=== PATIENT | male | born 1970 | race Caucasian/White ===

== ENCOUNTER 2016-11-12 14:17 | Emergency (ER) | payer MEDICAID ==
[~2016-11-12] VITALS: Ht 162.6 cm; Wt 67.0 kg
[2016-11-12 15:24] VITALS: Ht 162.6 cm; Wt 67.0 kg
[2016-11-12] MEDS ORDERED: HYDROCODONE/APAP (5/325) TAB PO ONE (17:00)
[2016-11-12 17:01] LABS: ADD SCAN DIFF NO
[2016-11-12 17:03] LABS: ABNORMAL IP MESSAGE 1; HEMATOCRIT 41.6 % (42.0-52.0); MEAN CORPUSCULAR HEMOGLOBIN 27.2 pg (29.0-33.0); MEAN CORPUSCULAR HGB CONC 33.7 g/dl (32.0-37.0); MEAN CORPUSCULAR VOLUME 80.8 fl (82.0-101.0); MEAN PLATELET VOLUME 8.9 fl (7.4-10.4); PLATELET COUNT 297 10^3/UL (140-415); RED BLOOD COUNT 5.15 10^6/ul (4.70-6.10); RED CELL DISTRIBUTION WIDTH 13.2 % (11.5-14.5)
[2016-11-12 17:17] LABS: ALBUMIN 4.7 g/dl (3.3-4.9)
[2016-11-12 17:19] LABS: CREATININE 0.74 mg/dl (0.61-1.24)
[2016-11-12 17:20] LABS: ALBUMIN/GLOBULIN RATIO 1.42; CALCIUM 9.2 mg/dl (8.4-10.2)
[2016-11-12 17:51] LABS: BASOPHIL # 0.4 10^3/ul (0.0-0.1); EOSINOPHILS # 1.3 10^3/ul (0.0-0.5); LYMPHOCYTES # 3.9 10^3/ul (0.8-2.9); MONOCYTE # 0.7 10^3/ul (0.3-0.9); NEUTROPHIL # 4.7 10^3/ul (1.6-7.5)
[2016-11-12 17:55] LABS: PLATELET ESTIMATE PLT APPEAR ADEQUATE
[2016-11-12 19:48] LABS: URINE BLOOD (Dip) POC Negative (NEGATIVE)
--- NOTE | 2016-11-12 20:01 | ERD ---
ER Documentation Chief Complaint Date/Time DATE: 11/12/16 TIME: 19:58 Chief Complaint DIARRHEA,FEELING BLOATED.HX DIVERTICULITIS HPI This 46-year-old male presents to the emergency department today complaining of diarrhea approximately 6 times a day for quite some time. Patient states he also has some blood in his rectum when he wipes occasionally but denies any currently. States that in 2009 he had a history of a colonoscopy and was told that he had polyps and hemorrhoids. States he has some nausea but no vomiting. Denies any fevers or chills. Patient states he is concerned that he could have cancer. ROS All systems reviewed and are negative except as per history of present illness. Medications Home Meds Active Scripts Dicyclomine Hcl* (Bentyl*) 10 Mg Capsule, 10 MG PO QID, #30 CAP Prov:MONTSE ROONEY PA-C 11/12/16 Allergies Allergies: Coded Allergies: No Known Drug Allergies (Verified Allergy, 12/15/12) PMhx/Soc History of Surgery: No Anesthesia Reaction: No Hx Neurological Disorder: No Hx Respiratory Disorders: No Hx Cardiac Disorders: No Hx Psychiatric Problems: No Hx Miscellaneous Medical Probl: Yes (diveticulitis) Hx Alcohol Use: No Hx Substance Use: No Hx Tobacco Use: No Smoking Status: Never smoker Physical Exam Vitals Vital Signs Date Time Temp Pulse Resp B/P Pulse Ox O2 Delivery O2 Flow Rate FiO2 11/12/16 15:24 98.0 74 18 155/98 98 Physical Exam Const: No acute distress Head: Atraumatic Eyes: Normal Conjunctiva ENT: Normal External Ears, Nose and Mouth. Neck: Full range of motion..~ No meningismus. Resp: Clear to auscultation bilaterally Cardio: Regular rate and rhythm, no murmurs Abd: Soft, mild diffuse lower abdominal pain non distended. Normal bowel sounds. No right upper quadrant pain. No epigastric pain. Skin: No petechiae or rashes Back: No midline or flank tenderness Ext: No cyanosis, or edema Neur: Awake and alert Psych: Normal Mood and Affect Result Diagram: 11/12/16 1655 11/12/16 1655 Results 24 hrs Laboratory Tests Test 11/12/16 16:55 11/12/16 19:48 White Blood Count 11.010^3/ul Red Blood Count 5.1510^6/ul Hemoglobin 14.0g/dl Hematocrit 41.6% Mean Corpuscular Volume 80.8fl Mean Corpuscular Hemoglobin 27.2pg Mean Corpuscular Hemoglobin Concent 33.7g/dl Red Cell Distribution Width 13.2% Platelet Count 03692^3/UL Mean Platelet Volume 8.9fl Neutrophils % 43.0% Lymphocytes % 35.0% Monocytes % 6.0% Eosinophils % 12.0% Basophils % 4.0% Neutrophils # 4.710^3/ul Lymphocytes # 3.910^3/ul Monocytes # 0.710^3/ul Eosinophils # 1.310^3/ul Basophils # 0.410^3/ul Platelet Estimate PLT APPEAR ADEQUATE Sodium Level 140mmol/L Potassium Level 4.0mmol/L Chloride Level 99mmol/L Carbon Dioxide Level 28mmol/L Anion Gap 17 Blood Urea Nitrogen 13mg/dl Creatinine 0.74mg/dl Glucose Level 97mg/dl Calcium Level 9.2mg/dl Total Bilirubin 0.0mg/dl Direct Bilirubin 0.00mg/dl Indirect Bilirubin 0.0mg/dl Aspartate Amino Transf (AST/SGOT) 25IU/L Alanine Aminotransferase (ALT/SGPT) 41IU/L Alkaline Phosphatase 75IU/L Total Protein 8.0g/dl Albumin 4.7g/dl Globulin 3.30g/dl Albumin/Globulin Ratio 1.42 Lipase 373U/L Bedside Urine pH (LAB) 5.5 Bedside Urine Protein (LAB) Negative Bedside Urine Glucose (UA) Negative Bedside Urine Ketones (LAB) Negative Bedside Urine Blood Negative Bedside Urine Nitrite (LAB) Negative Bedside Urine Leukocyte Esterase (L Negative Current Medications Medications (Trade) Dose Ordered Sig/Lien Route PRN Reason Start Time Stop Time Status Last Admin Dose Admin Acetaminophen/ Hydrocodone Bitart ([place] (5/325)) 1 tab ONCE ONCE PO 11/12/16 17:00 11/12/16 17:01 DC 11/12/16 16:51 DIAGNOSTIC IMAGING REPORT Patient: MONICA BONE : 1970 Age: 46 Sex: M MR #: [id number] DOS: 11/12/16 1647 Ordering MD: MONTSE ROONEY PA-C Location: [facility] Room/Bed: PROCEDURE: CT Abdomen and Pelvis without contrast. CLINICAL INDICATION: Abdominal pain, diarrhea, bloated feeling, history of diverticulitis. TECHNIQUE: A CT scan of the abdomen and pelvis was performed without intravenous contrast. Coronal and sagittal reformatted images were generated. Images were reviewed on a high-resolution PACS workstation. CTDIvol: 7.95 mGy. DLP: 419.89 mGy-cm. One or more of the following dose reduction techniques were used: - Automated exposure control. - Adjustment of the mA and/or kV according to patient size. - Use of iterative reconstruction technique. COMPARISON: None. FINDINGS: The lung bases are clear. Evaluation of the abdominal and pelvic viscera is limited by the lack of oral and intravenous contrast. The liver is unremarkable. The gallbladder is normal in appearance. The common bile duct is not dilated. The spleen is not enlarged. No pancreatic lesion is identified and there is no pancreatic ductal dilatation. The adrenal glands are unremarkable. The kidneys are normal in size. There is no perinephric fat stranding. No hydronephrosis is seen. No urinary stone is identified. There is a 1.9 cm right renal cyst. The small and large bowel are normal in caliber. There is no bowel wall thickening.There is mild descending and sigmoid colon diverticulosis. There is a small to moderate amount of retained gas and stool in the colon. The appendix is normal. The urinary bladder is unremarkable. The prostate gland is enlarged. No lymphadenopathy is identified. There is no ascites. No pneumoperitoneum is seen. There are no arterial calcifications. No suspicious osseous lesion is idenitified. IMPRESSION: 1. No inflammation, mass, or lymphadenopathy. 2. Mild descending and sigmoid colon diverticulosis. 3. Small to moderate volume of retained gas and stool in the colon. 4. Normal appendix. 5. No obstructive uropathy or urinary stone. 6. Enlarged prostate gland. Correlation with PSA level is recommended. RPTAT: HTAR .Delta Hillman MD, Date Time Electronically viewed and signed by .Delta Hillman MD, MD on 11/12/2016 20:01 .R/ CC: MONTSE ROONEY PA-C Procedures/MDM This 46-year-old male who presents to the emergency department today with a past medical history of polyps, diverticulitis and hemorrhoids who complains of multiple bouts of diarrhea for quite some time. Patient could not tell me how long he had had this for. Patient had some mild diffuse lower abdominal pain and I did obtain laboratory work as well as imaging. Laboratory work shows a very mildly elevated white blood cell count. His hemoglobin is within normal limits. His hematocrit is very mildly decreased. Platelets are within normal limits. Electrolytes are within normal limits. Glucose is within normal limits. Liver functions within normal limits. Lipase is elevated at 373. Low suspicion for acute pancreatitis. UA is negative CT abdomen pelvis noncontrast shows no inflammation, mass or lymphadenopathy. There is mild descending and sigmoid colon diverticulosis. There is a small to moderate volume of retained gas and stool in the colon. There is a normal appendix. There is no obstructive uropathy or urinary stone. There is an enlarged prostate. There is no bowel wall thickening. Patient symptoms at this time is consistent with abdominal pain and diverticulosis. Low suspicion for acute surgical abdomen. Do not feel the patient requires antibiotics at this time. Discussed the patient with Dr. Peters and he is recommended the patient be sent home with Calhounyl. I have also recommended to the patient he does get a primary care physician for further evaluation and possible stool culture as well as referral to GI specialist. Patient was under the impression that he could come here to the emergency department and get a colonoscopy. I have explained to him that this is an outpatient procedure. I have given the patient a list of names. At this time the patient is stable for discharge and outpatient management. Patient should follow up with their PCP in the next 1-2 days. They may return to the emergency department sooner for any persistent or worsening of symptoms. Patient understood and agreed with the plan. Departure Diagnosis: Primary Impression: Abdominal pain Abdominal location: generalized Qualified Code: R10.84 - Generalized abdominal pain Additional Impression: Diarrhea Diarrhea type: unspecified type Qualified Code: R19.7 - Diarrhea, unspecified type Condition: Fair MONTSE ROONEY PA-C Nov 12, 2016 20:01
--- NOTE | 2016-11-12 20:02 | RADRPT ---
PROCEDURE: CT Abdomen and Pelvis without contrast. CLINICAL INDICATION: Abdominal pain, diarrhea, bloated feeling, history of diverticulitis. TECHNIQUE: A CT scan of the abdomen and pelvis was performed without intravenous contrast. Francis l and sagittal reformatted images were generated. Images were reviewed on a high-resolution PACS wor kstation. CTDIvol: 7.95 mGy. DLP: 419.89 mGy-cm. One or more of the following dose reduction techniques were used: - Automated exposure control. - Adjustment of the mA and/or kV according to patient size. - Use of iterative reconstruction technique. COMPARISON: None. FINDINGS: The lung bases are clear. Evaluation of the abdominal and pelvic viscera is limited by the lack of oral and intravenous contra st. The liver is unremarkable. The gallbladder is normal in appearance. The common bile duct is not dila yarelis. The spleen is not enlarged. No pancreatic lesion is identified and there is no pancreatic ducta l dilatation. The adrenal glands are unremarkable. The kidneys are normal in size. There is no perinephric fat stranding. No hydronephrosis is seen. No urinary stone is identified. There is a 1.9 cm right renal cyst. The small and large bowel are normal in caliber. There is no bowel wall thickening.There is mild gen cending and sigmoid colon diverticulosis. There is a small to moderate amount of retained gas and st ool in the colon. The appendix is normal. The urinary bladder is unremarkable. The prostate gland is enlarged. No lymphadenopathy is identified. There is no ascites. No pneumoperitoneum is seen. There are no art erial calcifications. No suspicious osseous lesion is idenitified. IMPRESSION: 1. No inflammation, mass, or lymphadenopathy. 2. Mild descending and sigmoid colon diverticulosis. 3. Small to moderate volume of retained gas and stool in the colon. 4. Normal appendix. 5. No obstructive uropathy or urinary stone. 6. Enlarged prostate gland. Correlation with PSA level is recommended. RPTAT: HTAR .Delta Hillman MD, Date Time Electronically viewed and signed by .Delta Hillman MD, on 11/12/2016 20:01 .R/
[2016-11-12] MEDS ORDERED: DICY10CA60 PO (20:18)
[2016-11-12 20:25] VITALS: BP 161/101; RESP 17; TEMP 98.7
== END 2016-11-12 20:26 | disposition home or self-care (01) ==
LOC: FTE 14:17
DX: R10.84 Generalized abdominal pain (principal)
CPT/HCPCS: 36415; 74176; 80053; 83690; 85025; Z7502; Z7610; 81003